=== PATIENT | male | born 2005 | race Caucasian/White ===

== ENCOUNTER 2025-03-29 00:08 | Emergency (ER) | payer BC, SELFPAY ==
[2025-03-29 00:10] VITALS: BP 123/75; PULSE 102; RESP 20; TEMP 36.5; O2SAT 95; BMI 18.7
--- NOTE | 2025-03-29 00:34 | ED_ITS ---
HPI - General Adult General Chief complaint: Cough Stated complaint: cough Time Seen by Provider: 03/29/25 00:10 Source: patient Mode of arrival: ambulatory Limitations: no limitations History of Present Illness HPI narrative: 19-year-old male presents emergency department with 2-3 days of cough, bothered to the point that he had trouble sleeping last night. Presents in the wee hours, No clinic urgent care evaluation prior to now. No fever. No productive cough. No history of asthma or underlying chronic disease. No sick contacts, no pertinent an actual travel. Tried some DayQuil during the day but nothing of recent. Not immunocompromised. No history of chronic disease. Denies long-term medications. Reports gluten allergy. ROS is notable for the respiratory symptoms only, otherwise denies times 12 systems. Related Data Previous Rx's ?Medication ?Instructions ?Recorded albuterol 90 mcg-budesonide 80 2 inh inhalation QID ME N shortness 03/29/25 mcg/actuation HFA aerosol inhaler of breath #10.7 gram s (Airsupra) Allergies Allergy/AdvReac Type Severity Reaction Status Date / Time gluten Allergy Intermediate Abdominal Verified 03/29/25 00:16 Pain PFSH PFSH Social History Non-prescribed substance use: denies use Exam Const: Vital Signs, click to edit/add: Vital Signs - 24 hr 03/29/25 00:10 Temperature 97.7 F Pulse Rate [Left P ulse Oximeter] 102 H Respiratory Rate 20 Blood Pressure [Ri ght Upper Arm] 123/75 Pulse Oximetry 95 Oxygen Delivery Me thod Room Air Documenting provider has reviewed patient's vital signs: yes Common normals: no apparent distress General appearance: cooperative and well kempt HENMT: Common normals: normocephalic and moist oral mucous membranes Head and scalp: normocephalic Face and sinus: normal facial exam Eye: Common normals: conjunctivae normal Conjunctiva: conjunctiva(e) normal Neck & C-Spine: Common normals: no lymphadenopathy General: normal visual inspection Resp: Common normals: normal respiratory effort, no use of accessory muscles and clear to auscultation bilaterally Effort & inspection: able to speak in complete sentences Auscultation: clear to auscultation bilaterally Cardio: Common normals: regular rate, regular rhythm, S1 normal heart sound, S2 normal heart sound and no murmurs Rate: regular rate Rhythm: regular rhythm Heart sounds: S1 normal and S2 normal Extremity: Common normals: normal to inspection Psych: Common normals: cooperative Appearance: well kempt Attitude: engaged Skin: Common normals: no rashes or lesions noted General skin exam: no r ashes or lesions noted Course Course ED Course: 19-year-old male with cough. No features of pneumonia, bacterial illness, fever, sepsis or asthma. Think he might benefit from an albuterol inhaler. Albuterol /steroid inhaler combo prescribed to pharmacy. No indications for chest x-ray or further workup. Patient counseled on qozr-ytu-smlcwtz medications, ozzz-jhn-yurqkwu sleep aids that may be helpful while this virus runs its course. Re-evaluation 7 days if not improving. Alarm symptoms reviewed that would warrant ED re-evaluation. Upon completion of our discussion, patient insists on flu and strep swabs. Patient has been symptomatic for 48 hours, there would be no indication to treat with Tamiflu. With cough strep is also likely to be of low yield. But is Halloween night and early have the resources to argue with him. Will order the tests that he is requesting. Update: Labs negative as expected. 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, will give DuoNeb and budesonide x1 and discharge Vital Signs Vital signs: Initial Vital Signs Temperature 97.7 F 03/29/25 00:10 Temperature Source Temporal Artery Scan 03/29/25 00:10 Pulse Rate 102 H 03/29/25 00:10 Pulse Rhythm Regular 03/29/25 00:10 Respiratory Rate 20 03/29/25 00:10 Blood Pressure 123/75 03/29/25 00:10 Blood Pressure Mean 91 03/29/25 00:10 Blood Pressure Position Sitting 03/29/25 00:10 Pulse Oximetry 95 03/29/25 00:10 Oxygen Delivery Method Room Air 03/29/25 00:10 Vital Signs Temperature 97.7 F 03/29/25 00:10 Pulse Rate 102 H 03/29/25 00:10 Respiratory Rate 20 03/29/25 00:10 Blood Pressure 123/75 03/29/25 00:10 Pulse Oximetry 95 03/29/25 00:10 Oxygen Delivery Method Room Air 03/29/25 00:10 Temperature 97.7 F 03/29/25 00:10 Pulse Rate 102 H 03/29/25 00:10 Respiratory Rate 20 03/29/25 00:10 Blood Pressure 123/75 03/29/25 00:10 Pulse Oximetry 95 03/29/25 00:10 Oxygen Delivery Method Room Air 03/29/25 00:10 Medical Decision Making Lab Data Lab results reviewed: Yes I reviewed the patient's lab results Labs: Lab Results 03/29/25 Range/Units 00:35 SARS-CoV-2 (PCR) Negative SARS-CoV-2 (Negative) Influenza Type A (PCR) Negative PCR FLU A (Negative) Influenza Type B (PCR) Negative PCR FLU B (Negative) RSV (PCR) Negative PCR RSV (Negative) Group A Strep DNA NOT DETECTED (Not Detectd) Discharge Plan Discharge Clinical Impression: Chest cold Patient Disposition: Home, Self-Care Condition: Stable Additional Instructions: As we discussed, your symptoms are consistent with an upper respiratory infection illness. There are no signs of pneumonia, low oxygen levels, sepsis or other major complication today. Even bronchitis is typically caused by a virus. Unfortunately, this will not improve with antibiotics, as it is not a bacterial infection. Since you have been symptomatic for more than 48 hours, I do not recommend testing for different viruses, as treatment would not be indicated. To help with sleep, I recommend melatonin 10 mg at bedtime, emth-bny-vvxgtsr Unisom or 1-2 Benadryl to helper animal laboratory in sleep. You may find kxxb-ypn-gkqjbjg cough suppressants helpful and I would recommend picking up some NyQuil. I have prescribed an inhaler for you to use to help reduce the severity of the cough. Please pick this up in the morning at the pharmacy. Symptoms tend to last 5-10 days. If things have not improved 7 days from now, I recommend re-evaluation. If you have high fever over 100.4, persistent shortness of breath or other signs of major complication, you should be re- evaluated sooner. Your cleared return to all sports and activities at this time. Activity Level: No Restrictions Discharge Diet: Regular Prescriptions: New Airsupra 90-80 mcg/actuation HFA aerosol inhaler 2 inh inhalation QID PRN (Reason: shortness of breath) Qty: 10.7 0RF Stand Alone Forms: [employer] Info Instructions
--- OUTSIDE RECORDS SUMMARY | 2025-03-29 00:41 | XMS_ITS | Encounter Summary ---
Author Organization [facility] Address [address] [address] Phone Care Team Providers Care Corsage Maker Name Role Phone Eddi Schneider M.D. Primary Care Provider Brittney Cali D.O. Primary Care Provider [phone] Samina Espinoza PA-C Primary Care Provider + Rhea Laws M.D. Primary Care Provider + Reason for Referral * Connect (Routine) - Closed Specialty Diagnoses / Procedures Referred By Contlauryn t Referred To Contact Gastroenterology Diagnoses Celiac disease Eddi Schneider M.D. [facility] (GI & [facility]), [address], [address] [address] Phone: tel: fax: Referral ID Status Reason Start Date Expiration Date Visits Re quested Visits Authorized [id number] Closed 05/18/2017 05/18/2018 1 1 Question Answer [facility] Medical Staff Policy requires PCP agreement for all referrals. Have you consulted with the PCP regarding this referral? I am the PCP Preauthorization NA Comments Today's Date: 05/18/2017 Is this referral for a sub-specialty clinic within the GI/Liver Clinic? no Purpose of Consultation: eval. and tx. Nature of Consultation: Celiac Dz Is this referral for a second opinion? no In addition to communicating to PCP, communicate results of this consult to me fax Does this patient require appointments in more than one department? no Specific problems or questions to be addressed by trial consultant: celiac disease Patient Name: Percy Ponce Patient : 2005 Patient Patient (home) Payor: Payor: / No coverage found. [facility] Encounter Details Date Type Department Care Team (Late st Contact Info) Description 05/18/2017 [place] [address] Eddi Schneider M.D. Celiac disease (Primary Dx) Social History Tobacco Use Types Packs/Day Years Used Date Smoking Tobacco: Never Assessed Sex and Gender Information Value Date Recorded Sex Assigned at Not on file Legal Sex Male 9:08 AM [facility] Gender Identity Not on file Sexual Orientation Not on file documented as of this encounter Plan of Treatment Scheduled Referrals Name Type Priority Associated Diagnoses Orde r Schedule Referral to GI/Liver Referral Routine Celiac disease Ordered: 05/18/2017 documented as of this encounter Visit Diagnoses Diagnosis Start Date Status Celiac disease- Primary 05/18/2017 Active documented in this encounter Care Teams Corsage Maker Relationship Specialty Start Date End Date Eddi Schneider M.D. PCP - General General Pediatrics 01/02/15 08/31/22 Brittney Jerome D.O. PCP - General General Pediatrics 09/01/22 01/15/23 Samina Espinoza PA-C PCP - General 01/16/23 02/26/23 Rhea Laws M.D. PCP - General 02/27/23 documented as of this encounter
--- OUTSIDE RECORDS SUMMARY | 2025-03-29 00:41 | XMS_ITS | Clinical Summary ---
Author Organization [facility] Address [address] [address] Care Team Providers Care Deputy Juvenile Officer Name Role Phone Rhea Lwas MD Primary Care Provider [phone] Allergies No known active allergies Medications No known medications Encounters Date Type Department Care Team Description 01/01/2025 11:30 AM MDT Initial Visit Medicine Otolaryngology Ear, Nose, & Throat - [facility] [address] [place] [address] Nell Martines MD Bilateral impacted cerumen (Primary Dx); Right ear pain 01/01/2025 11:00 AM MDT Procedure visit Medicine Otolaryngology Audiology - [facility] [address] [place] [address] Aniyah Vargas, AuD Ear pressure, right (Primary Dx) from Last 3 Months Family History Relation Status Comments Father Alive Mother Alive Social History Tobacco Use Types Packs/Day Years Used Date Smoking Tobacco: Never Smokeless Tobacco: Never Tobacco Cessation:Counseling Given: Not Answered Alcohol Use Standard Drinks/Week Comments Never 0 (1 standard drink = 0.6 oz pur e alcohol) Sex and Gender Information Value Date Recorded Sex Assigned at Not on file Legal Sex Male 12:08 PM MDT Gender Identity Not on file Sexual Orientation Not on file Plan of Treatment Health Maintenance Due Date Last Done Comments Hepatitis B Screening Adult 2005 Syphilis Screening 2005 HIV Screening (Ages 15-65/One-time) 2020 Hepatitis C Antibody Screening 11/18/2023 Medical Durable Power of Rodrigue marcus (MDPOA) 11/18/2023 Influenza Vaccine (#1) 2025 7, 04/18/2009, 04/18/2009, Additional history exists Tdap/Td Vaccine (2 - Td or Tdap) 05/17/2027 05/17/20 17 HPV Vaccine Adult Completed 07/04/2018, 05/17/2017 MCV Vaccines Completed 02/11/2022, 05/17/2017 Insurance [employer] BC/BS LOCAL EPO/PPO Care Teams Deputy Juvenile Officer Relationship Specialty Start Date End Date Rhea Laws MD [address] [employer] [id number] PCP - General Pediatrics 09/18/24
--- OUTSIDE RECORDS SUMMARY | 2025-03-29 00:41 | XMS_ITS | Clinical Summary ---
Author Organization [facility] Address [address], [place] [address] Phone Care Team Providers Care Mall Manager Name Role Phone Rhea Laws M.D. Primary Care Provider + Source Comments [facility], [place], [place] is fully implemented on Nvigen. [facility] Allergies Active Allergy Reactions Criticality Noted Date Comments Amoxicillin Potential for Adverse Reaction Medium 11/2018 Gluten Abdominal Pain Low 09/01/2022 Celiac Medications * This document contains information received from the source organization and may not represent a complete record from that organization. * Be aware that medications may not be up to date as of this document. Always verify current medications with patient. No known medications Active Problems Problem Noted Date Diagnosed Date Celiac disease 02/10/2015 02/17/2023 Resolved Problems Problem Noted Date Diagnosed Date Resolved Date Tic disorder 02/17/2023 02/17/2023 02/17/2023 Immunizations Immunization Administration Dates Next Due Diptheria/Tetanus/Acellular Pertussis) 7,03/21/2006,01/17/2006 Dtap, 5 Pertussis Antigens (Daptacel) 01/12/2011 Hep A Vaccine Ped/Adol(Hepatitis A) 11/03/2011,0 02/15/2007 Hep B, unspecified formulation 11/20/2006,2005,01/17/2006 Hib, unspecified formulation 11/20/2006,03/21/20 06,01/17/2006 Hib/Hep B Immunization (Comvax) 11/20/2006,03/21,01/17/2006 Human Papilloma Virus Nonavalent (HPV) 9,05/17/2017 IPV (Inactivated Poliovirus) Vaccine ,01/12/2011,11/20/2006,11/20,03/21/2006,03/21/2006,01/17/2006 ,01/17/2006 Influenza A (H1N1) 2009 inje ctable Over 36 Mon 04/18/2009 Influenza Quad 0.5ML (Pres Free) 023,02/11/2022,07/04/2018,02/15,06/01/2006 Influenza Quad 0.5ml 05/17/2017 Influenza, Trivalent, Injectable 06/01/2006 MMR 01/12/2011,11/20/2006 MMRV (Measles/Mumps/Rubella/Varicella) 1,11/20/2006 Meningococcal Acyw (Menquadfi) 02/11/2022 Meningococcal Group B (Trumenba) 02/20/2023,01/27 Meningococcal MCV4 (Menactra) 05/17/2017 Moderna Sars-CoV-2 Vaccine 11/11/2020,10/21/2020 Prevnar 13 (Pneumococcal Con jugate Vaccine, 13 Valent) 02/15/2007,06/01/2006,03/21/2006,01/17 Prevnar 7 (pneumococcal conj ugate vaccine, 7 valent) 02/15/2007,06/01/2006,03/21/2006,01/17 TDAP (7 YR or older) Immunization 05/17/2017 VARICELLA 01/12/2011,11/20/2006 influenza a (h1n1) 2009 inje ctable vaccine 6-35 months 04/18/2009 Family History Medical History Relation Comments Fracture Brother Warts Brother myocardial infarction Maternal Grandfather abnormal lipids Maternal Grandmother heart disease Maternal Grandmother hypertension Maternal Grandmother myocardial infarction Maternal Grandmother diabetes type 1 Paternal Grandfather negative Paternal Grandmother negative Sister Relation Status Comments Brother Alive Father Alive Maternal Grandfather Alive Maternal Grandmother Alive Mother Alive Paternal Grandfather Paternal Grandmother Alive Sister Alive Social History Tobacco Use Types Packs/Day Years Used Date Smoking Tobacco: Never Assessed PHQ-2 Answer Date Recorded PHQ-2 Total Score 3 02/20/2024 PHQ-9 Answer Date Recorded PHQ-9 Total Score (calculated) 5 0 02/20/2024 Family Safety Answer Date Recorded Family Safety Concerns No Community Connections Answer Date Recor ded Caregiver PCP help Not on file 11/29/2018 Child PCP help Not on file 11/29/2018 Potential social isolation Yes 11/29 Appointment help Not on file 11/29/2018 Benefits help needed: Not on file 11/29/2018 Education concerns Yes 11/29/2018 Alcohol / Marijuana Use Answer Date Rec orded Alcohol/Marijuana- Caregiver: Not on file Alcohol last 12 mos: Not on file 08/23/2020 Marijuana- Patient Use: No 08/24/19 Tobacco Use Answer Date Recorded Tobacco: Caregiver Use Not on file Tobacco- Patient Use: No 01/04/2020 Depression risk Answer Date Recorded Caregiver Depression: Not on file 02/20/2024 Caregiver suicidal thoughts: Not on file PHQ-9 Total Score (calculated) 5 0 02/20/2024 Last EPDS Total Score Not on file 02/20/2024 Last EPDS self harm item: Not on file 2023 Food Insecurity Answer Date Recorded Food Insecurity - Worry Not on file 02/19/20 Food Insecurity - Inability No 01/28 Transportation Answer Date Recorded Transportation Not on file 02/11/2023 [address] 02/11/2023 Substance Use Answer Date Recorded Substances- Caregiver Use Not on file 2022 Substances- Patient Use: No 023 Sex and Gender Information Value Date Recorded Sex Assigned at Not on file Legal Sex Male 9:08 AM [facility] Gender Identity Not on file Sexual Orientation Not on file Last Filed Vital Signs Vital Sign Reading Time Taken Comments Blood Pressure 104/70 02/20/2024 8:51 AM MDT Pulse 76 12/24/2024 10:31 AM MDT Temperature 36.8 C (98.3 F) 12/24/2024 10:31 AM MDT Respiratory Rate 18 12/24/2024 10:31 AM MDT Oxygen Saturation 98% 09/01/2022 4:29 PM MDT Inhaled Oxygen Concentration - - Weight 65.5 kg (144 lb 6 oz) 12/24/2024 10:31 AM MDT Height 186.7 cm (6' 1.5) 02/20/2024 8:51 AM MDT Body Mass Index - - Plan of Treatment Health Maintenance Due Date Last Done Comments Chlamydia Screening 2021 Depression Screening 02/11/2023 02/11/2022, 01/28/2021, 01/28/2021, Additional history exists COVID-19 Vaccine ( season) 2025 04/13/2022, 11/03/2021, 11/11/2020, Additional history exists Influenza Vaccine (#1) 2025 , 02/11/2022, 07/04/2018, Additional history exists DTaP,Tdap,and Td Vaccines (6 - Td or Tdap) 05/17/2027 05/17/2017, 01/12/2011, 06/01/2006, Additional history exists HIB vaccines Completed 11/20/2006, 10/28, 03/21/2006, Additional history exists Hep B Vaccines Completed 11/20/2006, 10/28, 03/21/2006, Additional history exists Pneumococcal Vaccine (PCV): Pediatric 0-5y and At-Risk 6-64y Aged Out 02/15/2007, 02/15/2007, 06/01/2006, Additional history exists No longer eligible based on patient's age to complete this topic IPV Vaccines Completed 01/12/2011, 12/27, 11/20/2006, Additional history exists MMR Vaccines Completed 01/12/2011, 12/27, 11/20/2006, Additional history exists Varicella Vaccines Completed 01/12/2011, 0 01/12/2011, 11/20/2006, Additional history exists Hep A Vaccines Completed 11/03/2011, 02/15/2007 HPV Vaccine Completed 07/04/2018, 05/17/2017 Meningococcal ACWY Vaccine Completed 02/11/2022, Meningococcal B Vaccine Completed 02/20/2023, 02/11 Well Child Check Discontinued 02/20/2024, , 02/11/2022, Additional history exists [facility] Care Teams Mall Manager Relationship Specialty Start Date End Date Rhea Laws M.D. [facility] - General 02/27/23
--- OUTSIDE RECORDS SUMMARY | 2025-03-29 00:42 | XMS_ITS | Encounter Summary ---
Author Organization [facility] [employer] [facility] Address [address] [address] Care Team Providers Care Dinkey Operator Slate Name Role Phone Rhea Laws MD Primary Care Provider [phone] Reason for Visit * Reason Comments Scheduling Encounter Details Date Type Department Care Team (Late st Contact Info) Description 10/07/2024 Nurse Triage [facility] Audiology Clinic - [facility] [place] [address] Self, Self [facility] Social History Tobacco Use Types Packs/Day Years Used Date Smoking Tobacco: Never Assessed Sex and Gender Information Value Date Recorded Sex Assigned at Not on file Legal Sex Male 12:08 PM MDT Gender Identity Not on file Sexual Orientation Not on file documented as of this encounter Progress Notes * Shruti Tracy - 10/07/2024 1:29 PM MDT LVM to schedule HT * Bernadette Sanders - 10/07/2024 12:03 PM MDT Patient Line Reason for messages Scheduling Request What type of an appointment does the patient want? Patient needs hearing test at [facility] sometimenext week , DT not allowing me to schedule [facility] location for some reason. Please call pts mom back to reschedule at [facility] for HT next week Why was an appointment not scheduled? Agent unable to schedule this visit type. Patient questions/concerns: see above If needed, can we contact you through [facility] No [facility] Patient's Provider: not established Caller's Name: Jory Caller's Relationship to patient: mom Best call back #: Other [phone] Best time to call: anytime Is it OK to leave a detailed message?: Yes Extraction Supervisor Name: Bernadette Sanders Agent documented in this encounter Plan of Treatment Not on file documented as of this encounter Visit Diagnoses Not on filedocumented in this encounter Care Teams Dinkey Operator Slate Relationship Specialty Start Date End Date Rhea Laws MD [address] [place] [address] PCP - General Pediatrics 09/18/24 documented as of this encounter
--- OUTSIDE RECORDS SUMMARY | 2025-03-29 00:42 | XMS_ITS | Clinical Summary ---
Author Organization [facility] Address [address] [place] [address] Care Team Providers Care Flour Mixer Name Role Phone Unavailable Primary Care Provider Unavailabl e Social History Tobacco Use Types Packs/Day Years Used Date Smoking Tobacco: Never Assessed Sex and Gender Information Value Date Recorded Sex Assigned at Not on file Legal Sex Male 6:09 AM PST Gender Identity Not on file Sexual Orientation Not on file Plan of Treatment Not on file
--- OUTSIDE RECORDS SUMMARY | 2025-03-29 00:42 | XMS_ITS | Encounter Summary ---
Author Organization [facility] Address [address] [place] [address] Care Team Providers Care International Sales Representative Name Role Phone Unavailable Primary Care Provider Unavailabl e Prior Encounters Date Type Department Care Team Description 06/17/2019 Converted 13x Documents [facility] [address] [place] [address] <No scans attached> 06/17/2019 Converted CPS Chart Documents [facility] [address], [address] [place] [phone] <No scans attached> 06/17/2019 Converted CPS Chart Documents [facility] [address], [address] [place] [address] <No scans attached> 06/17/2019 Converted 13x Documents [facility] [address] [place] [address] <No scans attached> Plan of Treatment Not on file Procedures Procedure Name Priority Date/Time Associated Diagnosis Comments MISSED APPOINTMENT Routine 08/28/2019 1: 00 AM MDT ORAL HYGIENE INSTRUCTIONS Routine 2018 1:00 AM MDT TOPICAL APPLICATION OF FLUORIDE VARNISH Routine 02/20/2019 1:00 AM MDT PROPHYLAXIS - ADULT Routine 02/20/2019 1 :00 AM MDT PERIODIC ORAL EVALUATION - ESTABLISHED PATIENT Routine 02/20/2019 1:00 AM MDT ORAL HYGIENE INSTRUCTIONS Routine 2018 1:00 AM MDT TOPICAL APPLICATION OF FLUORIDE VARNISH Routine 08/15/2018 1:00 AM MDT PROPHYLAXIS - CHILD Routine 08/15/2018 1 :00 AM MDT COMPREHENSIVE ORAL EVALUATION - NEW OR ESTABLISHED PATIENT Routine 08/15/2018 1:00 AM MDT ORTHO CONSULT Routine 02/02/2018 1:00 AM MDT Visit Diagnoses Not on file
[2025-03-29 01:08] LABS: Strep A DNA Probe* NOT DETECTED (Not Detectd)
[2025-03-29 01:21] LABS: PCR FLU A Negative PCR FLU A (Negative); PCR FLU B Negative PCR FLU B (Negative); PCR RSV Negative PCR RSV (Negative); SARS PCR* Negative SARS-CoV-2 (Negative)
[2025-03-29] MEDS: IPRAT-ALBUT 0.5-2.5 MG/3 ML NEB 1 NEB IH (01:34)
[2025-03-29] MEDS: BUDESONIDE 0.5 MG/2ML NEB NEB (01:40)
== END 2025-03-29 01:58 | disposition home or self-care (01) ==
PROVIDERS: Emergency Provider Family Medicine
DX: J00 Acute nasopharyngitis [common cold] (principal)
CPT/HCPCS: 87631; 87651; 99283